=== PATIENT | female | born 1965 | race Caucasian/White ===

== ENCOUNTER 2017-12-03 06:44 | Emergency (ER) | payer OTHER ==
[~2017-12-03] VITALS: Ht 154.9 cm; Wt 99.8 kg
[~2017-12-03 06:44] MED LIST: BACTRIM DS 8001 TAB PO; CYCLOBENZAPRINE10 M1 PO; GUAIFENESIN-COD10 ML PO; HEARTBURN RELI150 MG PO; HYDROCHLOROTHIA25 M1 PO; KETOROLAC TROME10 M1 PO; LISINOPRIL20 M1 PO; MEDROL4 M2 PO; PYRIDIUM100 M1 PO; PYRIDIUM100 MG PO
[2017-12-03] MEDS ORDERED: VITAMIN D250000 UNIT PO (06:56)
[2017-12-03] MEDS ORDERED: DICLOFENAC POTA50 M1 PO (07:24)
--- NOTE | 2017-12-03 07:25 | ED THROAT/DENTAL COMPLAINT ---
History of Present Illness General Chief Complaint: Sore Throat, Dental Pain Stated Complaint: SORE THROAT Source: patient Exam Limitations: no limitations Vital Signs & Intake/Output Vital Signs & Intake/Output Vital Signs Date Time Temp Pulse Resp B/P B/P Pulse O2 O2 Flow FiO2 Mean Ox Delivery Rate 12/03 0654 98.2 93 20 168/95 99 Room Air Allergies Coded Allergies: Penicillins (SEVERE HIVES 01/06/17) ciprofloxacin (From CIPRO) (VOMITING, DIARRHEA 01/06/17) clarithromycin (From BIAXIN) (VOMITING, DIARRHEA, SEVERE ABD PAIN 01/06/17) Reconcile Medications Cyclobenzaprine HCl 10 MG TABLET 1 TAB PO TID PRN MUSCLE SPASMS Ergocalciferol (Vitamin D2) (Vitamin D2) 50,000 UNIT CAPSULE 1 CAP PO QW VITAMIN SUPPORT (Reported) Hydrochlorothiazide 25 MG TABLET 1 TAB PO DAILY BP (Reported) Ketorolac Tromethamine 10 MG TABLET 1 TAB PO Q6P PRN FLANK PAIN Lisinopril 20 MG TABLET 1 TAB PO DAILY BP (Reported) Ranitidine HCl (Heartburn Relief) 150 MG TABLET 1 TAB PO AD PRN GI (Reported) Triage Note: PT REPORTS SORE THROAT SINCE SUNDAY. PT REPORTS SHE THOUGHT IT WAS ALLERGIES "BUT ITS NOT GOING AWAY". PT REPORTS HX OF STREP THROAT. Triage Nurses Notes Reviewed? yes HPI: Patient presents for evaluation of moderate sore throat pain began gradually on Sunday. Patient states the pain has been more or less constant but worsens with swallowing. Patient denies any associated fever, swollen glands, cough, rash or known ill contacts. Past History Travel History Traveled to [place] past 21 day No Medical History Any Pertinent Medical History? see below for history Neurological: NONE EENT: NONE Cardiovascular: hypertension, hyperlipidemia Respiratory: asthma, bronchitis Gastrointestinal: GERD Hepatic: NONE Renal: UTI'S, KIDNEY STONES Musculoskeletal: NONE Psychiatric: NONE Endocrine: BORDERLINE DIABETES Blood Disorders: NONE Cancer(s): NONE PC INSTALLATION ENGINEER/Reproductive: CYSTIC BREASTS Surgical History Surgical History: non-contributory Psychosocial History What is your primary language Turkish Tobacco Use: Never used ETOH Use: occasional use Illicit Drug Use: denies illicit drug use Family History Hx Contributory? No Review of Systems Review of Systems Constitutional: Reports: no symptoms. EENTM: Reports: see HPI. Respiratory: Reports: no symptoms. Cardiovascular: Reports: no symptoms. GI: Reports: no symptoms. Genitourinary: Reports: no symptoms. Musculoskeletal: Reports: no symptoms. Skin: Reports: no symptoms. Neurological/Psychological: Reports: no symptoms. Hematologic/Endocrine: Reports: no symptoms. Immunologic/Allergic: Reports: no symptoms. All Other Systems: Reviewed and Negative Physical Exam Physical Exam Mouth/Throat: see below Comments: Gen.: Well-nourished, well-developed, no acute respiratory distress. Head: Normocephalic, atraumatic. Eyes: Normal inspection bilaterally Ears: Normal inspection bilaterally Nose: Normal inspection Throat/mouth : Moist mucosa, no oropharyngeal erythema, soft tissue swelling or exudates Neck: Supple, full range of motion, no goiter Heart: Regular rate and rhythm, no murmurs rubs or gallops Lungs: Clear to auscultation bilaterally with normal air entry Chest: Nontender Back: Normal range of motion Abdomen: Soft, nontender, nondistended, normal bowel sounds, no organo-megaly Extremities: Normal range of motion grossly, equal radial pulses, no cyanosis clubbing or edema Neurologic: Cranial nerves grossly intact, speech is clear Skin: warm and dry Psychiatric: Calm, cooperative, no apparent delusions or hallucinations Lymphatic: No cervical lymphadenopathy Core Measures ACS in differential dx? No Sepsis Present: No Sepsis Focused Exam Completed? No Progress Differential Diagnosis: Ludwigs angina, jose carlos-tonsillar abscess, strep pharyngitis, viral pharyngitis Plan of Care: Orders Procedure Date/time Status THROAT CULTURE W/QUICK STREP 12/03 0655 Active Departure Departure Disposition: HOME OR SELF CARE Condition: Stable Clinical Impression Primary Impression: Pharyngitis Qualifiers: Pharyngitis/tonsillitis etiology: unspecified etiology Qualified Code: J02.9 - Acute pharyngitis, unspecified Referrals: Arcelia PERSAUD,Donna Mancia (PCP/Family) Additional Instructions: Diclofenac as needed for sore throat pain. Cool liquids. Soft diet. Follow-up with your primary care physician in one week if not improving. Return if any concerns or sudden worsening. Thank you for choosing the [facility] for your care. It was a pleasure to serve you today. Benjamin Simpson M.D. [facility] Departure Forms: Customer Survey General Discharge Information Prescriptions: Current Visit Scripts Diclofenac Potassium 1 TAB PO TID PRN PAIN #21 TAB
[2017-12-03 07:30] VITALS: BP 186/85
== END 2017-12-03 07:36 ==
LOC: ERH 06:44
DX: J02.9 Acute pharyngitis, unspecified (principal)